=== PATIENT | female | born 1935 | race Caucasian/White ===

== ENCOUNTER 2016-11-04 12:55 | Inpatient (IN) | payer MEDICARE, MEDICAID ==
[~2016-11-04] VITALS: Ht 157.5 cm; Wt 62.1 kg
[2016-11-04] MEDS ORDERED: COZAAR PO (13:10)
[2016-11-04] MEDS ORDERED: ATENOLOL PO (13:10)
[2016-11-04 13:25] LABS: BASOPHILS % (AUTO) 0.4 % (0.0-2.0); EOSINOPHILS # (AUTO) 0.1 K/uL (0.0-0.7); EOSINOPHILS % (AUTO) 1.6 % (0.0-7.0); HEMATOCRIT 34.1 % (37.0-47.0); HEMOGLOBIN 12.1 g/dL (12.0-16.0); LYMPHOCYTES # (AUTO) 1.1 K/uL (0.8-4.8); LYMPHOCYTES % (AUTO) 19.6 % (20.5-51.5); MEAN CORPUSCULAR HEMOGLOBIN 32.5 uug (27.0-31.0); MEAN CORPUSCULAR HGB CONC 36 g/dL (32.0-37.0); MEAN CORPUSCULAR VOLUME 91.4 fL (81.0-99.0); MONOCYTES # (AUTO) 0.4 K/uL (0.1-1.30); MONOCYTES % (AUTO) 6.6 % (0.0-11.0); NEUTROPHILS % (AUTO) 71.8 % (38.5-71.5); PLATELET COUNT (AUTO) 221 K/uL (150-450); RED BLOOD CELL COUNT(AUTO) 3.73 MIL/uL (4.20-5.40); RED CELL DISTRIBUTION WIDTH 14.1 % (11.5-14.5); WHITE BLOOD COUNT (AUTO) 5.6 K/uL (4.0-11.2)
[2016-11-04 13:28] LABS: CALCIUM 8.6 mg/dL (8.5-10.1); CREATININE 1.1 mg/dL (0.6-1.3); POTASSIUM 3.8 mmol/L (3.5-5.1)
[2016-11-04 13:33] LABS: ALBUMIN 3.4 g/dL (3.4-5.0); BILIRUBIN,DIRECT 0.1 mg/dL (0.0-0.2); BILIRUBIN,TOTAL 0.6 mg/dL (0.2-1.0); TOTAL PROTEIN, SERUM 5.7 g/dL (6.4-8.2)
[2016-11-04] MEDS ORDERED: MORPHINE SULFATE 2 MG/1 ML DISP.SYRIN IV ONE (16:00)
[2016-11-04 16:12] VITALS: BP 136/80
[2016-11-04 17:23] LABS: *BILIRUBIN,URIN NEGATIVE (NEGATIVE); *BLOOD, URINE 1+ (NEGATIVE); *CLARITY,URINE CLEAR (CLEAR); *COLOR,URINE YELLOW (YELLOW); *KETONES,URINE NEGATIVE (NEGATIVE); *PROTEIN,URINE NEGATIVE (NEGATIVE); *UROBILINOGEN,URINE 0.2 E.U./dl (NORMAL); LEUKOCYTE ESTERASE ,URINE NEGATIVE (NEGATIVE); NITRITE, URINE NEGATIVE (NEGATIVE); PH,URINE 8.5 (5.0-8.0); UGLUCOSE NEGATIVE (NEGATIVE)
[2016-11-04 17:25] LABS: BACTERIA,URINE FEW /HPF (NONE SEEN); SQUAMOUS EPITHELIAL CELL,UR FEW /HPF (NONE SEEN); WBC,URINE NONE SEEN /HPF (0-3)
[2016-11-04] MEDS ORDERED: ONDANSETRON 4 MG/2 ML VIAL IV PRN (18:45)
[2016-11-04] MEDS ORDERED: Z GUARD REMEDY PASTE 57 GM TUBE TOP PRN (18:45)
[2016-11-04] MEDS ORDERED: ACETAMINOPHEN 325 MG TABLET PO PRN (18:45)
[2016-11-04] MEDS ORDERED: HYDROCODONE/APAP 5-325MG TABLET PO PRN (18:45)
[2016-11-04] MEDS ORDERED: HYDROCODONE/APAP 10-325 MG TABLET PO PRN (18:45)
[2016-11-04] MEDS ORDERED: ZOLPIDEM 5 MG TABLET PO PRN (18:45)
[2016-11-04] MEDS ORDERED: MAGNESIUM HYDROXIDE 30 ML LIQUID UDC PO PRN (18:45)
[2016-11-04 20:00] VITALS: BP 140/72
[2016-11-04] MEDS: ENOXAPARIN SODIUM 40 MG/0.4 ML DISP.SYRIN SQ SCH (21:00)
[2016-11-04] MEDS: MORPHINE SULFATE 2 MG/1 ML DISP.SYRIN IV PRN (21:48)
[2016-11-05] MEDS: MORPHINE SULFATE 2 MG/1 ML DISP.SYRIN IV PRN ×5 (04:01→21:18)
[2016-11-05 05:25] VITALS: BP 140/76
[2016-11-05] MEDS: PANTOPRAZOLE SODIUM 40 MG TABLET.DR PO SCH (06:04)
[2016-11-05 06:43] LABS: BASOPHILS % (AUTO) 0.4 % (0.0-2.0); EOSINOPHILS # (AUTO) 0.1 K/uL (0.0-0.7); EOSINOPHILS % (AUTO) 1.8 % (0.0-7.0); HEMATOCRIT 32.2 % (37.0-47.0); HEMOGLOBIN 11.6 g/dL (12.0-16.0); LYMPHOCYTES % (AUTO) 17.8 % (20.5-51.5); MEAN CORPUSCULAR HEMOGLOBIN 33.1 uug (27.0-31.0); MEAN CORPUSCULAR HGB CONC 36 g/dL (32.0-37.0); MEAN CORPUSCULAR VOLUME 91.8 fL (81.0-99.0); MONOCYTES # (AUTO) 0.4 K/uL (0.1-1.30); MONOCYTES % (AUTO) 6.4 % (0.0-11.0); NEUTROPHILS # (AUTO) 4.4 K/uL (1.8-8.9); NEUTROPHILS % (AUTO) 73.6 % (38.5-71.5); PLATELET COUNT (AUTO) 218 K/uL (150-450); RED BLOOD CELL COUNT(AUTO) 3.51 MIL/uL (4.20-5.40); RED CELL DISTRIBUTION WIDTH 13.7 % (11.5-14.5); WHITE BLOOD COUNT (AUTO) 5.9 K/uL (4.0-11.2)
[2016-11-05 06:52] LABS: CREATININE 1.2 mg/dL (0.6-1.3); MAGNESIUM 2.1 mg/dL (1.8-2.4); PHOSPHOROUS 3.8 mg/dL (2.5-4.9); POTASSIUM 3.2 mmol/L (3.5-5.1)
[2016-11-05 06:57] LABS: THYROID STIMULATING HORMONE 1.352 mIU/mL (0.358-3.740)
[2016-11-05] MEDS: LOSARTAN POTASSIUM 50 MG TABLET PO SCH (08:24)
[2016-11-05] MEDS: POTASSIUM CHLORIDE 40 MEQ in IV NS 1000 ML 1,000 ML IV PRN ×2 (10:27→20:32)
[2016-11-05 11:53] VITALS: BP 145/84
[2016-11-05 15:47] VITALS: BP 126/67
[2016-11-05 20:25] VITALS: BP 141/74
[2016-11-05] MEDS: ENOXAPARIN SODIUM 40 MG/0.4 ML DISP.SYRIN SQ SCH (20:33)
[2016-11-06] MEDS: MORPHINE SULFATE 2 MG/1 ML DISP.SYRIN IV PRN ×2 (01:46→06:42)
[2016-11-06 06:00] VITALS: BP 165/91
[2016-11-06] MEDS: POTASSIUM CHLORIDE 40 MEQ in IV NS 1000 ML 1,000 ML IV PRN (06:37)
[2016-11-06] MEDS: PANTOPRAZOLE SODIUM 40 MG TABLET.DR PO SCH (07:00)
[2016-11-06] MEDS ORDERED: POLYMYXIN B SULFATE 500,000 UNITS, BACITRACIN 50,000 UNITS, NORMAL SALINE 20 ML MC ONE ×3 (07:15)
[2016-11-06] MEDS: LOSARTAN POTASSIUM 50 MG TABLET PO SCH (08:50)
[2016-11-06] MEDS ORDERED: FENTANYL CITRATE 100 MCG/2 ML AMPUL ONE (10:17)
[2016-11-06] MEDS ORDERED: SEVOFLURANE 250 ML BOTTLE IH ONE (10:25)
[2016-11-06] MEDS ORDERED: NEOSTIGMINE METHYLSULFATE 10 MG/10 ML VIAL IV ONE (10:25)
[2016-11-06] MEDS ORDERED: GLYCOPYRROLATE 0.2 MG/ML VIAL MC ONE (10:25)
[2016-11-06] MEDS ORDERED: PROPOFOL 200 MG/20 ML BOTTLE IV ONE (10:25)
[2016-11-06] MEDS ORDERED: CEFAZOLIN 1 G VIAL MC ONE (10:26)
[2016-11-06] MEDS ORDERED: VECURONIUM BROMIDE 10 MG VIAL IV ONE (10:26)
[2016-11-06] MEDS ORDERED: DEXAMETHASONE SOD PHOSPHATE 4 MG INJ IV ONE (10:27)
[2016-11-06] MEDS ORDERED: KETOROLAC TROMETHAMINE 30 MG INJ IM ONE (10:27)
[2016-11-06] MEDS ORDERED: LIDOCAINE-MPF 2% 5 ML VIAL MC ONE (10:28)
[2016-11-06] MEDS ORDERED: ONDANSETRON 4 MG/2 ML VIAL IV ONE (10:28)
[2016-11-06] MEDS ORDERED: ESMOLOL HCL 100 MG/10 ML VIAL IV ONE (10:28)
[2016-11-06] MEDS ORDERED: LABETALOL HCL 100 MG/20 ML VIAL IV ONE (10:30)
[2016-11-06] MEDS ORDERED: IV LACTATED RINGERS SOLUTION 1,000 ML BAG IV ONE (10:30)
[2016-11-06 11:03] LABS: CALCIUM 7.7 mg/dL (8.5-10.1); CREATININE 1.1 mg/dL (0.6-1.3); POTASSIUM 3.9 mmol/L (3.5-5.1)
[2016-11-06 11:12] VITALS: BP 117/60
[2016-11-06 11:37] VITALS: BP 124/61
[2016-11-06] MEDS: IV NS 1000 ML 1,000 ML IV PRN (13:29)
[2016-11-06 15:09] VITALS: BP 125/66
[2016-11-06] MEDS: MORPHINE SULFATE 4 MG/1 ML DISP.SYRIN IV PRN ×3 (16:05→23:15)
[2016-11-06] MEDS: CEFAZOLIN 1 G in PREMIXED 1 EACH IV SCH ×2 (16:22→21:28)
[2016-11-06 19:00] VITALS: BP 116/62
[2016-11-07] MEDS: MORPHINE SULFATE 4 MG/1 ML DISP.SYRIN IV PRN ×6 (02:09→20:27)
[2016-11-07] MEDS: IV NS 1000 ML 1,000 ML IV PRN ×2 (03:12→22:55)
[2016-11-07 04:00] VITALS: BP 121/56
[2016-11-07] MEDS: PANTOPRAZOLE SODIUM 40 MG TABLET.DR PO SCH (06:12)
[2016-11-07] MEDS: LOSARTAN POTASSIUM 50 MG TABLET PO SCH (07:59)
[2016-11-07] MEDS: ENOXAPARIN SODIUM 40 MG/0.4 ML DISP.SYRIN SQ SCH (08:04)
[2016-11-07] MEDS: HYDROCODONE/APAP 5-325MG TABLET PO PRN ×2 (09:41→22:56)
[2016-11-07 11:32] LABS: BASOPHILS % (AUTO) 0.2 % (0.0-2.0); EOSINOPHILS # (AUTO) 0.1 K/uL (0.0-0.7); EOSINOPHILS % (AUTO) 1.7 % (0.0-7.0); HEMATOCRIT 28.6 % (37.0-47.0); HEMOGLOBIN 10.1 g/dL (12.0-16.0); LYMPHOCYTES # (AUTO) 1.4 K/uL (0.8-4.8); LYMPHOCYTES % (AUTO) 16.5 % (20.5-51.5); MEAN CORPUSCULAR HEMOGLOBIN 32.5 uug (27.0-31.0); MEAN CORPUSCULAR HGB CONC 35 g/dL (32.0-37.0); MEAN CORPUSCULAR VOLUME 92.4 fL (81.0-99.0); MONOCYTES # (AUTO) 0.8 K/uL (0.1-1.30); MONOCYTES % (AUTO) 9.6 % (0.0-11.0); PLATELET COUNT (AUTO) 174 K/uL (150-450); RED CELL DISTRIBUTION WIDTH 14.4 % (11.5-14.5); WHITE BLOOD COUNT (AUTO) 8.3 K/uL (4.0-11.2)
[2016-11-07 11:58] VITALS: BP 95/46
[2016-11-07 15:28] VITALS: BP 103/58
[2016-11-07 20:00] VITALS: BP 150/73
[2016-11-08 06:00] VITALS: BP 108/58
[2016-11-08] MEDS: PANTOPRAZOLE SODIUM 40 MG TABLET.DR PO SCH (06:06)
[2016-11-08] MEDS: MORPHINE SULFATE 4 MG/1 ML DISP.SYRIN IV PRN ×4 (06:06→21:28)
[2016-11-08] MEDS: LOSARTAN POTASSIUM 50 MG TABLET PO SCH (08:48)
[2016-11-08] MEDS: ENOXAPARIN SODIUM 40 MG/0.4 ML DISP.SYRIN SQ SCH (08:52)
[2016-11-08 12:00] VITALS: BP 97/52
[2016-11-08 20:00] VITALS: BP 119/63
[2016-11-09] MEDS: MORPHINE SULFATE 4 MG/1 ML DISP.SYRIN IV PRN ×2 (01:11→12:59)
[2016-11-09 04:22] VITALS: BP 140/69
[2016-11-09] MEDS: PANTOPRAZOLE SODIUM 40 MG TABLET.DR PO SCH (06:22)
[2016-11-09] MEDS: HYDROCODONE/APAP 5-325MG TABLET PO PRN ×3 (06:24→21:47)
[2016-11-09] MEDS: LOSARTAN POTASSIUM 50 MG TABLET PO SCH (08:26)
[2016-11-09] MEDS: ENOXAPARIN SODIUM 40 MG/0.4 ML DISP.SYRIN SQ SCH (08:26)
[2016-11-09 11:21] VITALS: BP 117/56
[2016-11-09 15:51] VITALS: BP 119/64
[2016-11-09 20:00] VITALS: BP 121/65
[2016-11-10 04:00] VITALS: BP 132/71
[2016-11-10] MEDS: PANTOPRAZOLE SODIUM 40 MG TABLET.DR PO SCH (06:47)
[2016-11-10] MEDS: LOSARTAN POTASSIUM 50 MG TABLET PO SCH (08:55)
[2016-11-10] MEDS: ENOXAPARIN SODIUM 40 MG/0.4 ML DISP.SYRIN SQ SCH (08:56)
[2016-11-10] MEDS ORDERED: HYDR-3326 PO (10:14)
[2016-11-10] MEDS ORDERED: Losartan Potassium PO (10:14)
[2016-11-10] MEDS ORDERED: ENOX40DI SQ (10:14)
[2016-11-10] MEDS ORDERED: Acetaminophen PO (10:14)
[2016-11-10] MEDS: MORPHINE SULFATE 4 MG/1 ML DISP.SYRIN IV PRN ×2 (10:19→16:01)
[2016-11-10 12:00] VITALS: BP 110/53
== END 2016-11-10 16:30 | DRG 470 ==
LOC: ER 12:55 → MED 15:29
PROC: 30233N1 Transfusion of Nonautologous Red Blood Cells into Peripheral Vein, Percutaneous Approach (ICD-10-PCS; 2016-11-06)
PROC: 0SRR01Z Replacement of Right Hip Joint, Femoral Surface with Metal Synthetic Substitute, Open Approach (ICD-10-PCS; principal; 2016-11-06 07:40)
DX: S72.001A Fracture of unspecified part of neck of right femur, initial encounter for closed fracture (principal); W01.0XXA Fall on same level from slipping, tripping and stumbling without subsequent striking against object, initial encounter; Y93.A9 Activity, other involving cardiorespiratory exercise; Y92.39 Other specified sports and athletic area as the place of occurrence of the external cause; E87.6 Hypokalemia; M19.90 Unspecified osteoarthritis, unspecified site; M43.16 Spondylolisthesis, lumbar region; Z96.642 Presence of left artificial hip joint; Z85.6 Personal history of leukemia; I10 Essential (primary) hypertension
CPT/HCPCS: 36415; 51702; 70030-TC; 71010; 72170; 72192; 83735; 84100; 84443; 85025; 85730; 86850; 86900; 86901; 86920; 87086; 93005; 97001; 97003; 97110; 97112; 97116; 97530; A4663; C1758; C1776; J0690; J1100; J1650; J1885; J2270; J2405; J2710; J3010; J3480; J3490; J7030; J7120; P9016-BL; P9021